=== PATIENT | male | born 1935 | race Caucasian/White ===

== ENCOUNTER → 2021-10-26 | Outpatient (CLI) | payer OTHER | LOC: HYPER 11:25 | PROVIDERS: ATTEND Emergency Medicine | DX: E11.621 Type 2 diabetes mellitus with foot ulcer (principal); L89.624 Pressure ulcer of left heel, stage 4; L97.422 Non-pressure chronic ulcer of left heel and midfoot with fat layer exposed; L84 Corns and callosities; E11.69 Type 2 diabetes mellitus with other specified complication; M86.672 Other chronic osteomyelitis, left ankle and foot; E11.40 Type 2 diabetes mellitus with diabetic neuropathy, unspecified; E66.9 Obesity, unspecified; I10 Essential (primary) hypertension; I87.2 Venous insufficiency (chronic) (peripheral); K21.9 Gastro-esophageal reflux disease without esophagitis; R60.9 Edema, unspecified; R26.89 Other abnormalities of gait and mobility; M48.02 Spinal stenosis, cervical region; M43.22 Fusion of spine, cervical region; M99.87 Other biomechanical lesions of upper extremity; M19.90 Unspecified osteoarthritis, unspecified site; Z79.84 Long term (current) use of oral hypoglycemic drugs; Z90.49 Acquired absence of other specified parts of digestive tract; Z85.46 Personal history of malignant neoplasm of prostate; Z85.038 Personal history of other malignant neoplasm of large intestine; Z98.41 Cataract extraction status, right eye; Z98.42 Cataract extraction status, left eye; Z96.641 Presence of right artificial hip joint; Z68.28 Body mass index [BMI] 28.0-28.9, adult ==

== ENCOUNTER → 2021-11-10 | Outpatient (CLI) | payer OTHER | LOC: HYPER 10:50 | PROVIDERS: ATTEND Emergency Medicine | DX: E11.621 Type 2 diabetes mellitus with foot ulcer (principal); L89.624 Pressure ulcer of left heel, stage 4; L97.422 Non-pressure chronic ulcer of left heel and midfoot with fat layer exposed; L84 Corns and callosities; E11.69 Type 2 diabetes mellitus with other specified complication; M86.672 Other chronic osteomyelitis, left ankle and foot; E11.40 Type 2 diabetes mellitus with diabetic neuropathy, unspecified; E66.9 Obesity, unspecified; I10 Essential (primary) hypertension; I87.2 Venous insufficiency (chronic) (peripheral); K21.9 Gastro-esophageal reflux disease without esophagitis; R60.9 Edema, unspecified; R26.89 Other abnormalities of gait and mobility; M48.02 Spinal stenosis, cervical region; M43.22 Fusion of spine, cervical region; M99.87 Other biomechanical lesions of upper extremity; M19.90 Unspecified osteoarthritis, unspecified site; Z79.84 Long term (current) use of oral hypoglycemic drugs; Z90.49 Acquired absence of other specified parts of digestive tract; Z85.46 Personal history of malignant neoplasm of prostate; Z85.038 Personal history of other malignant neoplasm of large intestine; Z98.41 Cataract extraction status, right eye; Z98.42 Cataract extraction status, left eye; Z96.641 Presence of right artificial hip joint; Z68.28 Body mass index [BMI] 28.0-28.9, adult ==

== ENCOUNTER → 2021-11-24 | Outpatient (CLI) | payer OTHER | LOC: HYPER 10:01 | PROVIDERS: ATTEND Emergency Medicine | DX: E11.621 Type 2 diabetes mellitus with foot ulcer (principal); L89.624 Pressure ulcer of left heel, stage 4; L97.422 Non-pressure chronic ulcer of left heel and midfoot with fat layer exposed; L84 Corns and callosities; E11.69 Type 2 diabetes mellitus with other specified complication; M86.672 Other chronic osteomyelitis, left ankle and foot; E11.40 Type 2 diabetes mellitus with diabetic neuropathy, unspecified; E66.9 Obesity, unspecified; I10 Essential (primary) hypertension; I87.2 Venous insufficiency (chronic) (peripheral); K21.9 Gastro-esophageal reflux disease without esophagitis; R60.9 Edema, unspecified; R26.89 Other abnormalities of gait and mobility; M48.02 Spinal stenosis, cervical region; M43.22 Fusion of spine, cervical region; M99.87 Other biomechanical lesions of upper extremity; M19.90 Unspecified osteoarthritis, unspecified site; Z79.84 Long term (current) use of oral hypoglycemic drugs; Z90.49 Acquired absence of other specified parts of digestive tract; Z85.46 Personal history of malignant neoplasm of prostate; Z85.038 Personal history of other malignant neoplasm of large intestine; Z98.41 Cataract extraction status, right eye; Z98.42 Cataract extraction status, left eye; Z96.641 Presence of right artificial hip joint; Z68.28 Body mass index [BMI] 28.0-28.9, adult ==

== ENCOUNTER → 2021-12-08 | Outpatient (CLI) | payer OTHER | LOC: HYPER 11:20 | PROVIDERS: ATTEND Emergency Medicine | DX: E11.621 Type 2 diabetes mellitus with foot ulcer (principal); L89.624 Pressure ulcer of left heel, stage 4; L97.422 Non-pressure chronic ulcer of left heel and midfoot with fat layer exposed; L84 Corns and callosities; E11.69 Type 2 diabetes mellitus with other specified complication; M86.672 Other chronic osteomyelitis, left ankle and foot; E11.40 Type 2 diabetes mellitus with diabetic neuropathy, unspecified; E66.9 Obesity, unspecified; I10 Essential (primary) hypertension; I87.2 Venous insufficiency (chronic) (peripheral); K21.9 Gastro-esophageal reflux disease without esophagitis; R60.9 Edema, unspecified; R26.89 Other abnormalities of gait and mobility; M48.02 Spinal stenosis, cervical region; M43.22 Fusion of spine, cervical region; M99.87 Other biomechanical lesions of upper extremity; M19.90 Unspecified osteoarthritis, unspecified site; Z79.84 Long term (current) use of oral hypoglycemic drugs; Z90.49 Acquired absence of other specified parts of digestive tract; Z85.46 Personal history of malignant neoplasm of prostate; Z85.038 Personal history of other malignant neoplasm of large intestine; Z98.41 Cataract extraction status, right eye; Z98.42 Cataract extraction status, left eye; Z96.641 Presence of right artificial hip joint; Z68.28 Body mass index [BMI] 28.0-28.9, adult ==